=== PATIENT | male | born 1970 | race American Indian/Alaskan Native ===

== ENCOUNTER 2018-04-04 17:59 | Emergency (ER) | payer SELFPAY ==
[2018-04-04 18:04] VITALS: BP 136/73; PULSE 61; RESP 15; TEMP 98.5; O2SAT 100
[2018-04-04 18:40] LABS: URINE BILIRUBIN NEGATIVE (NEGATIVE); URINE BLOOD 1+ (NEGATIVE); URINE CLARITY Clear (Clear); URINE COLOR Yellow (YELLOW); URINE GLUCOSE (UA) NORMAL (Normal); URINE LEUKOCYTE ESTERASE NEG Leu/uL (Negative); URINE PROTEIN NEGATIVE (NEGATIVE); URINE UROBILINOGEN NORMAL mg/dL (0.2-1.0)
--- NOTE | 2018-04-04 18:46 | C.PDOC ---
History Of Present Illness 47-year-old male presents to the ED for evaluation of pain to his right hip region that has been positionally and digitally reproducible for two days. Patient admits to lifting heavy objects. He reports history of renal colic 10 years ago, but states his current symptoms feel different. Patient denies fever , chills, nausea, vomiting, diarrhea. Time Seen by Provider: 04/04/18 18:21 Chief Complaint (Nursing): Male Genitourinary History Per: Patient History/Exam Limitations: no limitations Onset/Duration Of Symptoms: Days (2) Current Symptoms Are (Timing): Still Present Quality Of Discomfort: "Pain" Associated Symptoms: denies: Fever, Chills, Nausea, Vomiting, Diarrhea Additional History Per: Patient Past Medical History Reviewed: Historical Data, Nursing Documentation, Vital Signs Vital Signs: Last Vital Signs Temp 98.5 F 04/04/18 18:01 Pulse 61 04/04/18 18:01 Resp 15 04/04/18 18:01 BP 136/73 04/04/18 18:01 Pulse Ox 100 04/04/18 20:02 - Medical History PMH: No Chronic Diseases Surgical History: No Surg Hx Family History: States: Unknown Family Hx - Social History Hx Alcohol Use: No Hx Substance Use: No - Immunization History Hx Tetanus Toxoid Vaccination: No Hx Influenza Vaccination: No Hx Pneumococcal Vaccination: No Review Of Systems Constitutional: Negative for: Fever, Chills Gastrointestinal: Negative for: Nausea, Vomiting Musculoskeletal: Positive for: Other (right hip pain ) Physical Exam - Physical Exam Appears: Non-toxic, No Acute Distress Skin: Normal Color, Warm, Dry Head: Atraumatic, Normacephalic Eye(s): bilateral: Normal Inspection Oral Mucosa: Moist Neck: Supple Chest: Symmetrical, No Deformity, No Tenderness Cardiovascular: Rhythm Regular, No Murmur Respiratory: Normal Breath Sounds, No Rales, No Rhonchi, No Wheezing Back: No CVA Tenderness Extremity: Normal ROM, Tenderness (to muscles around posterior iliac crest region ), Capillary Refill (less than 2 seconds ) Neurological/Psych: Oriented x3, Normal Speech, Normal Cognition ED Course And Treatment - Laboratory Results Lab Interpretation: Normal (UA neg.) O2 Sat by Pulse Oximetry: 100 (on RA ) Pulse Ox Interpretation: Normal Progress Note: Urinalysis ordered and reviewed. Motrin/ice given. Reevaluation Time: 18:47 Reassessment Condition: Improved Medical Decision Making Medical Decision Making: LOW susp of renal colic more likely muscle strain from heavy lifting. Improved with motrin/ice Disposition Doctor Will See Patient In The: Office Counseled Patient/Family Regarding: Studies Performed, Diagnosis - Disposition Referrals: [facility] [Outside] [facility] [Outside] [facility] [Outside] Disposition: HOME/ ROUTINE Disposition Time: 18:48 Condition: GOOD Additional Instructions: LOW suspicion of renal colic more likely muscle strain Urinalysis without significant blood to suspect renal colic Continue ice packs 1/2 hour per hour, nothing hot motrin 400-600 mg every 6 hours as needed Instructions: Muscle Strain Forms: [facility] (Slovak) - Clinical Impression Clinical Impression: Muscle strain - Scribe Statement The provider has reviewed the documentation as recorded by the Scribe (Susan Young) Provider Attestation: All medical record entries made by the Scribe were at my direction and personally dictated by me. I have reviewed the chart and agree that the record accurately reflects my personal performance of the history, physical exam, medical decision making, and the department course for this patient. I have also personally directed, reviewed, and agree with the discharge instructions and disposition.
== END 2018-04-04 19:01 | disposition home or self-care (01) ==
LOC: C.ER 17:59
DX: S76.011A Strain of muscle, fascia and tendon of right hip, initial encounter (principal); X50.0XXA Overexertion from strenuous movement or load, initial encounter

== ENCOUNTER 2018-05-06 17:21 | Emergency (ER) | payer OTHER ==
[2018-05-06 17:36] VITALS: BP 120/76; PULSE 60; RESP 20; TEMP 97.3; O2SAT 100
[2018-05-06] MEDS ORDERED: Lidocaine 5% Patch TD STA (17:54)
--- NOTE | 2018-05-06 17:57 | C.PDOC ---
History Of Present Illness 47yo male, no past medical history, comes to ER with complaints of lower back pain x 4 days. 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 He has been taking OTC Advil 2 tabs 3x per day with no relief of symptoms. He denies any weakness, numbness, tingling of lower extremities, bowel or bladder dysfunction, or saddle anesthesia. He has no other medical complaints. PMD: None provided Time Seen by Provider: 05/06/18 17:47 Chief Complaint (Nursing): Back Pain History Per: Patient History/Exam Limitations: no limitations Onset/Duration Of Symptoms: Days (4) Current Symptoms Are (Timing): Still Present Quality Of Discomfort: "Pain" Associated Symptoms: None. denies: Incontinence, New Weakness, New Numbness Exacerbating Factor(s): Sitting, Standing Additional History Per: Patient Past Medical History Reviewed: Historical Data, Nursing Documentation, Vital Signs Vital Signs: Last Vital Signs Temp 97.3 F L 05/06/18 17:33 Pulse 60 05/06/18 17:33 Resp 20 05/06/18 17:33 BP 120/76 05/06/18 17:33 Pulse Ox 100 05/06/18 18:00 - Medical History PMH: No Chronic Diseases Surgical History: No Surg Hx Family History: States: No Known Family Hx - Social History Hx Alcohol Use: No Hx Substance Use: No - Immunization History Hx Tetanus Toxoid Vaccination: No Hx Influenza Vaccination: No Hx Pneumococcal Vaccination: No Review Of Systems Genitourinary: Negative for: Incontinence Musculoskeletal: Positive for: Back Pain Neurological: Negative for: Weakness, Numbness Physical Exam - Physical Exam Appears: Non-toxic, No Acute Distress Skin: Normal Color Head: Normacephalic Neck: Supple Back: No CVA Tenderness, No Vertebral Tenderness, Muscle Spasm (left paralumbar muscle spasm), Paraspinal Tenderness (left paralumbar tenderness), No Straight Leg Raising Extremity: Normal ROM (FROM bilateral hips, knees and ankles), No Pedal Edema, No Calf Tenderness, No Deformity, No Swelling Extremity: Bilateral: Normal ROM Pulses: Left Dorsalis Pedis: Normal, Right Dorsalis Pedis: Normal Neurological/Psych: Oriented x3, Normal Motor, Normal Sensation Gait: Steady ED Course And Treatment O2 Sat by Pulse Oximetry: 100 (RA) Pulse Ox Interpretation: Normal Medical Decision Making Medical Decision Making: Impression: Back pain Plan: -- Toradol 30mg IM -- Lidoderm patch Disposition Counseled Patient/Family Regarding: Diagnosis, Need For Followup, Rx Given - Disposition Referrals: [facility] [Outside] Disposition: HOME/ ROUTINE Disposition Time: 18:41 Condition: GOOD Additional Instructions: Please avoid heavy lifting. Take ibuprofen as directed. Take muscle relaxant at bedtime- makes you sleepy. Follow up in medical clinic. Prescriptions: Cyclobenzaprine [Cyclobenzaprine HCl] 10 mg PO HS #9 tab Ibuprofen [Motrin] 600 mg PO TID #30 tab Instructions: Muscle Spasms (DC) Forms: [facility] (Tajik), General Discharge Instructions - Clinical Impression Clinical Impression: Spasm of muscle of lower back - PA / [employer] / Resident Statement MD/DO has reviewed & agrees with the documentation as recorded. - Scribe Statement The provider has reviewed the documentation as recorded by the Scribe (Dacia Weinberg) Provider Attestation: All medical record entries made by the Scribe were at my direction and personally dictated by me. I have reviewed the chart and agree that the record accurately reflects my personal performance of the history, physical exam, medical decision making, and the department course for this patient. I have also personally directed, reviewed, and agree with the discharge instructions and disposition.
[2018-05-06] MEDS ORDERED: Lidocaine 5% Patch TD ONE (18:06)
== END 2018-05-06 18:51 | disposition home or self-care (01) ==
LOC: C.ER 17:21
DX: M62.830 Muscle spasm of back (principal)
CPT/HCPCS: 96372; 99283; J1885